=== PATIENT | male | born 1940 | race Caucasian/White ===

== ENCOUNTER 2019-05-18 07:04 | Day surgery (SDC) | payer MEDICARE, OTHER ==
[2019-05-18] VITALS (10 sets, daily range): BP systolic 117–160; BP diastolic 52–84
[~2019-05-18] VITALS: Ht 170.2 cm; Wt 96.1 kg
[2019-05-18] MEDS ORDERED: dexamethasone sod phosphate 4mg/ml inj. IV ONE (07:35)
[2019-05-18] MEDS ORDERED: diphenhydrAMINE 25mg capsule PO ONE (07:35)
[2019-05-18] MEDS ORDERED: acetaminophen 325mg tablet PO ONE (07:35)
[2019-05-18 07:37] LABS: HEMOGLOBIN 7.9 g/dl (14.0-17.9); MEAN CORPUSCULAR HEMOGLOBIN 35.8 PG (27.0-31.0); MEAN CORPUSCULAR HGB CONC 36.2 g/dL (33.0-36.5); MEAN PLATELET VOLUME 7.2 FL (7.4-10.4); PLATELET COUNT 278 X10'3 (140-440); RED BLOOD COUNT 2.21 X10'6 (4.70-6.10); WHITE BLOOD COUNT 4.1 X10'3 (4.5-11.0)
[2019-05-18 07:48] LABS: HEMATOCRIT 21.9 % (42.0-52.0)
[2019-05-18] MEDS ORDERED: ATOR20TA66 PO (07:51)
[2019-05-18 08:32] LABS: TOTAL CELLS COUNTED 100
[2019-05-18 08:33] LABS: ANISOCYTOSIS 2+; PLATELET ESTIMATE NORMAL
--- NOTE | 2019-05-18 13:00 | NUR ---
[facility] MD JES HERNANDEZ AND STAFF HERE TO DO BONE BIOPSY. TOLERATED WELL. DRESSING TO LEFT POSTERIOR BUTTOCK AREA. DRESSING DRY & INTACT.
--- NOTE | 2019-05-18 18:00 | NUR ---
PRBC X 2 INFUSED AND COMPLETED. TOLERATED TRANSFUSIONS WELL. IV D/[place] WITH CATH INTACT. GIVEN EXIT CARE DISCHARGE INSTRUCTIONS. STATED UNDERSTANDING. DRESSING TO POSTERIOR BACK DRY & INTACT. ALL BELONGINGS WITH PATIENT UPON D/C HOME. D/C VIA W/C TO WAITING AUTO DRIVEN BY PATIENT. NO DISTRESS NOTED. DENIES DISCOMFORT.
== END 2019-05-18 18:00 | disposition home or self-care (01) ==
LOC: SSTAY O 07:04
PROVIDERS: ATTEND Internal Medicine Hematology & Oncology
PROC: 30243N1 Transfusion of Nonautologous Red Blood Cells into Central Vein, Percutaneous Approach (ICD-10-PCS; principal; 2019-05-18)
DX: D72.820 Lymphocytosis (symptomatic) (principal); C91.Z0 Other lymphoid leukemia not having achieved remission
CPT/HCPCS: 36415; 36430; 76700; 85007; 85027; 86885; 86900; 86901; 86920; 86945; 88184; 88185; J1100; P9016; Q0163

== ENCOUNTER 2019-06-10 13:51 | Observation (INO) | payer MEDICARE, OTHER ==
[~2019-06-10] VITALS: Ht 170.2 cm; Wt 94.8 kg
[~2019-06-10 13:51] MED LIST: ATOR20TA66 PO
[2019-06-10 14:28] LABS: EOSINOPHILS % (AUTO) 0.2 % (0-6); HEMOGLOBIN 7.3 g/dl (14.0-17.9); MEAN CORPUSCULAR HGB CONC 36.2 g/dL (33.0-36.5)
[2019-06-10 14:30] LABS: BASOPHILS % (AUTO) 0.3 % (0-1); LYMPHOCYTES # (AUTO) 5.4 X10'3 (1.1-4.8); LYMPHOCYTES % (AUTO) 76.2 % (21-51); MEAN CORPUSCULAR HEMOGLOBIN 34.3 PG (27.0-31.0); MEAN CORPUSCULAR VOLUME 94.8 FL (78-98); MEAN PLATELET VOLUME 7.1 FL (7.4-10.4); MONOCYTES # (AUTO) 0.7 X10'3 (0-0.9); MONOCYTES % (AUTO) 9.3 % (2-12); PLATELET COUNT 274 X10'3 (140-440); RED BLOOD COUNT 2.13 X10'6 (4.70-6.10); WHITE BLOOD COUNT 7.1 X10'3 (4.5-11.0)
[2019-06-10 14:42] LABS: ALANINE AMINOTRANSFERASE 32 U/L (12-78); ALBUMIN/GLOBULIN RATIO 1.5 (1.1-1.5); ALKALINE PHOSPHATASE 103 IU/L (46-116); ANION GAP 8 (8-16); ASPARTATE AMINO TRANSFERASE 18 U/L (10-37); BILIRUBIN,TOTAL 0.8 MG/DL (0.1-1.0); BLOOD UREA NITROGEN 14 MG/DL (7-18); BUN/CREATININE RATIO 15.6 (5.4-32.0); CALCIUM 8.6 MG/DL (8.5-10.1); CHLORIDE 106 MMOL/L (99-107); GLUCOSE 130 MG/DL (70-104); SODIUM 142 MMOL/L (135-145); TOTAL CARBON DIOXIDE 28.4 MMOL/L (24-32); TOTAL PROTEIN 6.6 G/DL (6.4-8.2); eGFR 81 ML/MIN
[2019-06-10 14:53] LABS: HEMATOCRIT 20.2 % (42.0-52.0)
[2019-06-10 14:56] LABS: TOTAL CELLS COUNTED 100
[2019-06-10 14:57] LABS: ANISOCYTOSIS 3+; PLATELET ESTIMATE NORMAL; SMUDGE CELLS FEW; SPHEROCYTES 1+
[2019-06-10 14:58] LABS: ELLIPTOCYTES 1+; SCHISTOCYTES FEW
[2019-06-10] MEDS ORDERED: LORazepam 1 MG tablet PO PRN (16:50)
[2019-06-10] MEDS ORDERED: ondansetron/PF 4mg/2ml inj IV PRN (16:50)
[2019-06-10] MEDS ORDERED: HYDROcodone/acetaminophen 5mg/325mg tablet PO PRN (16:50)
[2019-06-10] MEDS ORDERED: magnesium 4gm in 100ml NS 100 ML IV PRN (16:50)
[2019-06-10] MEDS ORDERED: magnesium 2GM in 50ml NS 50 ML IV PRN (16:50)
[2019-06-10] MEDS ORDERED: acetaminophen 325mg tablet PO PRN ×2 (16:50)
[2019-06-10] MEDS ORDERED: potassium Cl 20 mEq SR tablet PO PRN ×2 (16:50)
[2019-06-10] MEDS ORDERED: LORazepam 2 mg/ml vial IV PRN (16:50)
[2019-06-10] MEDS ORDERED: potassium CL 10mEq/100ml bag 100 ML IV PRN ×2 (16:50)
[2019-06-10] MEDS ORDERED: morphine 2 MG/ML inj. syringe IV PRN ×2 (16:50)
[2019-06-10] MEDS ORDERED: magnesium Cl slow-release 64mg tablet PO PRN (16:50)
[2019-06-10] MEDS ORDERED: dextrose 50%-water 50ml dispensing syringe IV PRN (16:50)
[2019-06-10] MEDS ORDERED: HYDROcodone/acetaminophen 10/325mg tab PO PRN (16:50)
[2019-06-10] MEDS ORDERED: mag hydrox/Alum hydrox/simeth 30ml oral suspension PO PRN (16:50)
[2019-06-10] MEDS ORDERED: diphenhydrAMINE 50 mg/ml inj IV PRN (16:50)
[2019-06-10] MEDS ORDERED: normal saline 1000ml 1,000 ML IV SCH (16:50)
[2019-06-10 19:04] LABS: CLARITY,URINE SLIGHTLY CLOUDY (Clear); COLOR,URINE YELLOW (Yellow); GLUCOSE, URINE NEGATIVE (Neg); KETONES,URINE NEGATIVE (Neg); LEUKOCYTE ESTERASE ,URINE SMALL (Neg); NITRITES, URINE NEGATIVE (Neg); OCCULT BLOOD,URINE NEGATIVE (Neg); PROTEIN,URINE NEGATIVE (Neg); UA COLLECTION TYPE VOIDED; UROBILINOGEN,URINE 0.2 E.U/dL (0.2-1.0)
[2019-06-10 19:11] LABS: BACTERIA,URINE FEW /HPF (Neg); MUCUS STRANDS FEW /LPF (Neg); RBC,URINE NONE SEEN /HPF (0-2); SQUAMOUS EPITHELIAL CELL,UR FEW /LPF (FEW); WBC CLUMPS,URINE FEW /HPF (NEGATIVE); WBC,URINE 30-50 /HPF (0-4)
[2019-06-10] MEDS: K and/or MAG REPLACEMENT MC SCH (20:00)
[2019-06-10] MEDS: docusate sod 100mg capsule PO SCH (20:46)
[2019-06-10] MEDS: heparin, porcine 5000 units/ml vial SQ SCH (20:46)
[2019-06-10] MEDS ORDERED: temazepam 15mg capsule PO PRN (21:00)
[2019-06-10 21:54] VITALS: BP 130/63
[2019-06-10 22:09] VITALS: BP 118/51
[2019-06-10 23:09] VITALS: BP 112/55
[2019-06-11 00:09] VITALS: BP 110/76
[2019-06-11 01:10] VITALS: BP 108/42
[2019-06-11 06:10] LABS: BASOPHILS % (AUTO) 0.3 % (0-1); MONOCYTES # (AUTO) 0.6 X10'3 (0-0.9)
[2019-06-11 06:11] LABS: ALANINE AMINOTRANSFERASE 28 U/L (12-78); ALBUMIN 3.6 G/DL (3.4-5.0); ALBUMIN/GLOBULIN RATIO 1.6 (1.1-1.5); ALKALINE PHOSPHATASE 86 IU/L (46-116); ANION GAP 5 (8-16); ASPARTATE AMINO TRANSFERASE 18 U/L (10-37); BILIRUBIN,TOTAL 0.8 MG/DL (0.1-1.0); BLOOD UREA NITROGEN 12 MG/DL (7-18); BUN/CREATININE RATIO 14.1 (5.4-32.0); CALCIUM 8.6 MG/DL (8.5-10.1); CHLORIDE 109 MMOL/L (99-107); CHOL/HDL RATIO 2.3 (0.00-4.99); CHOLESTEROL 75 MG/DL (0-200); CREATININE 0.85 MG/DL (0.60-1.10); GLUCOSE 90 MG/DL (70-104); HDL CHOLESTEROL 32 MG/DL (35-60); LDL CHOLESTEROL 30 MG/DL (50-100); POTASSIUM 4.1 MMOL/L (3.5-5.1); SODIUM 144 MMOL/L (135-145); TOTAL CARBON DIOXIDE 29.8 MMOL/L (24-32); TOTAL PROTEIN 5.8 G/DL (6.4-8.2); TRIGLYCERIDES 117 MG/DL (20-135); eGFR 87 ML/MIN
[2019-06-11 06:12] LABS: EOSINOPHILS % (AUTO) 0.4 % (0-6); HEMOGLOBIN 7.6 g/dl (14.0-17.9); MEAN CORPUSCULAR HEMOGLOBIN 32.8 PG (27.0-31.0); MEAN CORPUSCULAR HGB CONC 35.6 g/dL (33.0-36.5); MEAN CORPUSCULAR VOLUME 92.1 FL (78-98); MEAN PLATELET VOLUME 7.6 FL (7.4-10.4); MONOCYTES % (AUTO) 8.5 % (2-12); NEUTROPHILS # (AUTO) 0.7 X10'3 (1.8-7.7); NEUTROPHILS % (AUTO) 9.8 % (42-75); PLATELET COUNT 244 X10'3 (140-440); RED BLOOD COUNT 2.33 X10'6 (4.70-6.10); RED CELL DISTRIBUTION WIDTH 19.2 % (11.5-14.5); WHITE BLOOD COUNT 7.4 X10'3 (4.5-11.0)
[2019-06-11 06:19] LABS: HEMATOCRIT 21.5 % (42.0-52.0)
--- NOTE | 2019-06-11 06:32 | NUR ---
Problems reprioritized. Patient report given, questions answered & plan of care reviewed with Karolyn RUELAS.
[2019-06-11 07:00] VITALS: BP 134/65
--- NOTE | 2019-06-11 07:18 | NUR ---
Patient in room [facility]. I have received report from Vince RUELAS and had the opportunity to ask questions and assume patient care.
[2019-06-11 07:51] LABS: PLATELET ESTIMATE NORMAL
[2019-06-11 07:52] LABS: ANISOCYTOSIS 2+; POIKILOCYTOSIS FEW; POLYCHROMASIA FEW; SPHEROCYTES FEW
[2019-06-11] MEDS: K and/or MAG REPLACEMENT MC SCH (08:00)
[2019-06-11] MEDS: docusate sod 100mg capsule PO SCH (08:00)
[2019-06-11] MEDS: heparin, porcine 5000 units/ml vial SQ SCH (08:01)
[2019-06-11] MEDS ORDERED: CIPR250T4 PO (10:16)
[2019-06-11 11:00] VITALS: BP 107/56
--- NOTE | 2019-06-11 14:08 | NUR ---
patient seen by Dr larios is for discharge. All cares given and DC instructions given to patient and family member. DC home via private car in stable condition 1410hrs
--- NOTE | 2019-06-14 14:48 | NUR ---
Case Management DC follow-up: Spoke to spouse via telephone conv. Pt is doing good. No issues w/tachycardia, SOB, weakness, dizziness or N/V at this time. Spouse relayed that everyone was so nice and took great care of her . Understands medications and why they are prescribed. Follow up appt w/PCP 06/19/2019.
== END 2019-06-11 14:08 | disposition home or self-care (01) ==
LOC: ER 13:51 → ED HOLD 16:50 → SUR 3N 19:18
PROVIDERS: ADMIT Internal Medicine; ATTEND Internal Medicine
DX: D64.9 Anemia, unspecified (principal); E78.5 Hyperlipidemia, unspecified; R42 Dizziness and giddiness; F10.99 Alcohol use, unspecified with unspecified alcohol-induced disorder; Z79.899 Other long term (current) drug therapy
CPT/HCPCS: 36415; 36430; 80053; 80061; 81001; 83735; 85025; 86885; 86900; 86901; 86920; 86945; 87081; 87088; 93005; 93306; 96360; 96361; 96372; 99284; G0378; J1644; J7030; P9016

== ENCOUNTER 2019-07-24 16:46 | Emergency (ER) | payer MEDICARE, OTHER ==
[~2019-07-24] VITALS: Ht 170.2 cm; Wt 93.2 kg
[2019-07-24 17:18] VITALS: BP 135/57
== END 2019-07-24 18:17 | disposition home or self-care (01) ==
LOC: ER 16:47
DX: S42.291A Other displaced fracture of upper end of right humerus, initial encounter for closed fracture (principal); M19.90 Unspecified osteoarthritis, unspecified site; W18.09XA Striking against other object with subsequent fall, initial encounter; Y93.89 Activity, other specified; Y92.89 Other specified places as the place of occurrence of the external cause; Y99.9 Unspecified external cause status
CPT/HCPCS: 29105; 73030; 99283